=== PATIENT | female | born 1970 | race American Indian/Alaskan Native ===

== ENCOUNTER 2021-07-02 01:05 | Emergency (ER) | payer SELFPAY ==
[2021-07-02 03:33] VITALS: BP 131/79
== END 2021-07-03 08:49 | disposition left against medical advice (07) ==
LOC: ED 01:05
DX: R42 Dizziness and giddiness (principal); Z53.21 Procedure and treatment not carried out due to patient leaving prior to being seen by health care provider
CPT/HCPCS: 93005; 93010